=== PATIENT | male | born 1970 | race Caucasian/White ===

== ENCOUNTER 2017-05-26 09:32 | Emergency (ER) | payer OTHER ==
[~2017-05-26] VITALS: Ht 193 cm; Wt 125.2 kg
[2017-05-26 09:35] VITALS: BP 114/79; PULSE 76; RESP 19; TEMP 98.2; O2SAT 99
[2017-05-26] MEDS ORDERED: SODIUM CHLOR 0.9% 1000 ML INJ 1,000 ML IV SCH (09:47)
[2017-05-26 09:49] VITALS: BP 118/80; PULSE 78; RESP 18; O2SAT 100
[2017-05-26 09:55] VITALS: O2SAT 100
--- NOTE | 2017-05-26 09:55 | PD ---
HPI Chief Complaint: Abdominal Pain Time Seen by Provider: 09:40 Travel History International Travel<30 days: No Contact w/Intl Traveler<30days: No Traveled to known affect area: No History of Present Illness HPI 46 years old male complains of headache, neck pain, coughing, abdominal pain, nausea vomiting diarrhea and fever. Patient started having low back pain 2 days ago. Patient started running fever that night and nausea. Patient states that the fever was 102 orally. Patient started having low abdominal pain yesterday with nausea. Patient states the pain in cramping pain localized to lower abdomen. Patient denies any pain radiation. Patient started having increasing nausea and diarrhea this morning. Patient states that headache is mild aching headache diffuse over the head. Patient has history of recurrent neck and pain in the past. Patient states the cough is mild productive cough. Patient denies any chest pain or shortness of breath. Patient denies any dysuria or frequency. PFSH Past Medical History ?: Not Social History Tobacco Use: No Allergies-Medications (Allergen,Severity, Reaction): Coded Allergies: No Known Allergies (Unverified , 05/26/17) Reported Meds & Prescriptions Reported Meds & Active Scripts Active Ultram (Tramadol HCl) 50 Mg Tab 50 Mg PO Q6H PRN Bentyl (Dicyclomine HCl) 10 Mg Cap 10 Mg PO TID PRN Zofran Odt (Ondansetron Odt) 4 Mg Tab 4 Mg SL Q6HR PRN Review of Systems General / Constitutional: Positive: Fever Eyes: No: Visual changes HENT: Positive: Headaches, Neck Pain Cardiovascular: No: Chest Pain or Discomfort Respiratory: Positive: Cough, No: Shortness of Breath Gastrointestinal: Positive: Nausea, Vomiting, Diarrhea, Abdominal Pain Genitourinary: No: Dysuria Musculoskeletal: No: Pain Skin: No Rash Neurologic: No: Weakness Psychiatric: No: Depression Endocrine: No: Polydipsia Hematologic/Lymphatic: No: Easy Bruising Physical Exam Narrative GENERAL: Well-nourished, well-developed patient. SKIN: Focused skin assessment warm/dry. HEAD: Normocephalic. EYES: No scleral icterus. No injection or drainage. Throat: Nonerythematous. NECK: Supple, trachea midline. No JVD or lymphadenopathy. Mild tenderness paraspinal areas cervical spine. No midline tenderness. No meningismus. CARDIOVASCULAR: Regular rate and rhythm without murmurs, gallops, or rubs. RESPIRATORY: Breath sounds equal bilaterally. No accessory muscle use. GASTROINTESTINAL: Abdomen soft, nondistended. Patient has mild to moderate tenderness on palpation lower abdomen. No rebound tenderness. No mass. MUSCULOSKELETAL: No cyanosis, or edema. BACK: Mild to moderate tenderness on palpation left low lumbar area, without obvious deformity. No CVA tenderness. Neurologic exam normal. Data Data Last Documented VS Vital Signs Date Time Temp Pulse Resp B/P Pulse Ox O2 Delivery O2 Flow Rate FiO2 05/26/17 11:39 78 18 110/73 99 05/26/17 10:25 Room Air 05/26/17 09:35 98.2 Orders Complete Blood Count With Diff (05/26/17 09:47) Comprehensive Metabolic Panel (05/26/17 09:47) Lipase (05/26/17 09:47) Prothrombin Time / Inr (Pt) (05/26/17 09:47) Act Partial Throm Time (Ptt) (05/26/17 09:47) Urinalysis - C+S If Indicated (05/26/17 09:47) Ct Abd/Pel W Iv Contrast(Rout) (05/26/17 09:47) Iv Access Insert/Monitor (05/26/17 09:47) Ecg Monitoring (05/26/17 09:47) Oximetry (05/26/17 09:47) Ondansetron Inj (Zofran Inj) (05/26/17 10:00) Sodium Chlor 0.9% 1000 Ml Inj (Ns 1000 M (05/26/17 09:47) Morphine Inj (Morphine Inj) (05/26/17 10:15) Iohexol 350 Inj (Omnipaque 350 Inj) (05/26/17 10:51) Labs Laboratory Tests Test 05/26/17 05/26/17 10:01 10:19 White Blood Count 4.8 TH/MM3 Red Blood Count 5.08 MIL/MM3 Hemoglobin 14.8 GM/DL Hematocrit 44.8 % Mean Corpuscular Volume 88.2 FL Mean Corpuscular Hemoglobin 29.2 PG Mean Corpuscular Hemoglobin 33.1 % Concent Red Cell Distribution Width 12.4 % Platelet Count 186 TH/MM3 Mean Platelet Volume 9.0 FL Neutrophils (%) (Auto) 66.8 % Lymphocytes (%) (Auto) 21.4 % Monocytes (%) (Auto) 10.0 % Eosinophils (%) (Auto) 1.0 % Basophils (%) (Auto) 0.8 % Neutrophils # (Auto) 3.3 TH/MM3 Lymphocytes # (Auto) 1.0 TH/MM3 Monocytes # (Auto) 0.5 TH/MM3 Eosinophils # (Auto) 0.0 TH/MM3 Basophils # (Auto) 0.0 TH/MM3 CBC Comment DIFF FINAL Differential Comment Prothrombin Time 11.1 SEC Prothromb Time International 1.0 RATIO Ratio Activated Partial 24.6 SEC Thromboplast Time Sodium Level 141 MEQ/L Potassium Level 3.5 MEQ/L Chloride Level 106 MEQ/L Carbon Dioxide Level 26.2 MEQ/L Anion Gap 9 MEQ/L Blood Urea Nitrogen 9 MG/DL Creatinine 1.00 MG/DL Estimat Glomerular Filtration 80 ML/MIN Rate Random Glucose 130 MG/DL Calcium Level 8.5 MG/DL Total Bilirubin 0.9 MG/DL Aspartate Amino Transf 43 U/L (AST/SGOT) Alanine Aminotransferase 73 U/L (ALT/SGPT) Alkaline Phosphatase 70 U/L Total Protein 7.3 GM/DL Albumin 3.4 GM/DL Lipase 119 U/L Urine Collection Type CLEAN CATCH Urine Color STRAW Urine Turbidity CLEAR Urine pH 7.0 Urine Specific [place] 1.007 Urine Protein NEG mg/dL Urine Glucose (UA) NEG mg/dL Urine Ketones NEG mg/dL Urine Occult Blood TRACE Urine Nitrite NEG Urine Bilirubin NEG Urine Leukocyte Esterase NEG Urine RBC 0-3 /hpf Urine Squamous Epithelial 0-5 /hpf Cells Urine Amorphous Sediment FEW Microscopic Urinalysis Comment CULT NOT INDICATED Urine Collection Time 1019 MDM Medical Decision Making Medical Screen Exam Complete: Yes Emergency Medical Condition: Yes Interpretation(s) 10:42 AM. CBC within normal limit. CMP within normal limit. 11:01 AM. UA is negative. CT scan abdomen pelvis negative acute pathology. Differential Diagnosis Differential diagnosis including viral syndrome, bronchitis, pneumonia, gastroenteritis, colitis, UTI, pyelonephritis, nephrolithiasis, encephalitis Narrative Course 46 years old male with fever headache, neck pain, coughing, abdominal pain, nausea vomiting diarrhea and back pain. Diagnosis Primary Impression: Abdominal pain Qualified Code: R10.30 - Lower abdominal pain Additional Impressions: Gastroenteritis Viral syndrome Patient Instructions: General Instructions Additional Instructions: Encourage by mouth fluid. Tylenol for fever. Take medications as directed. Follow-up with personal physician. Return if persistent problem or worse. Med/Other Pt SpecificInfo: Prescription(s) given Scripts Tramadol (Ultram)50 Mg Tab50 Mg PO Q6H PRN (PAIN) #20 TAB Ref 0 Prov:Leon Grier MD 05/26/17 Dicyclomine (Bentyl)10 Mg Cap10 Mg PO TID PRN (PAIN SCALE 1 TO 10) #15 CAP Ref 0 Prov:Leon Grier MD 05/26/17 Ondansetron Odt (Zofran Odt)4 Mg Tab4 Mg SL Q6HR PRN (Nausea/Vomiting) #10 TAB Prov:Leon Grier MD 05/26/17 Disposition: 01 DISCHARGE HOME Condition: Stable Leon Grier MD May 26, 2017 09:55
[2017-05-26] MEDS ORDERED: ONDANSETRON HCL 4 MG/2 ML VIAL IVP ONE (10:00)
[2017-05-26] MEDS ORDERED: MORPHINE SULFATE 4 MG/ML INJ IV PUSH ONE (10:00)
[2017-05-26 10:14] LABS: AUTOMATED NEUTROPHIL # 3.3 TH/MM3 (1.8-7.7); BASOPHIL % 0.8 % (0.0-2.0); HEMATOCRIT 44.8 % (39.0-51.0); HEMO FLAGS DIFF FINAL; LYMPH % 21.4 % (9.0-44.0); MEAN CELL VOLUME 88.2 FL (80.0-100.0); MEAN CORPUSCULAR HEMOGLOBIN 29.2 PG (27.0-34.0); MEAN CORPUSCULAR HGB CONC 33.1 % (32.0-36.0); NEUT % 66.8 % (16.0-70.0); PLATELET COUNT 186 TH/MM3 (150-450); RED BLOOD COUNT 5.08 MIL/MM3 (4.50-5.90); RED CELL DISTRIBUTION WIDTH 12.4 % (11.6-17.2); WHITE BLOOD COUNT 4.8 TH/MM3 (4.0-11.0)
[2017-05-26] MEDS ORDERED: MORPHINE SULFATE 8 MG/ML INJ IV PUSH ONE ×2 (10:15)
[2017-05-26 10:21] LABS: CHLORIDE 106 MEQ/L (98-107); POTASSIUM 3.5 MEQ/L (3.5-5.1); SODIUM (NA) 141 MEQ/L (136-145)
[2017-05-26 10:25] VITALS: BP 131/86; PULSE 76; RESP 18; O2SAT 96
[2017-05-26 10:25] LABS: ANION GAP 9 MEQ/L (5-15); BICARBONATE 26.2 MEQ/L (21.0-32.0); BLOOD UREA NITROGEN 9 MG/DL (7-18)
[2017-05-26 10:28] LABS: ALT (GPT) 73 U/L (12-78); AST (GOT) 43 U/L (15-37); GLOMERULAR FILTRATION RATE 80 ML/MIN (>89)
[2017-05-26 10:30] LABS: TOTAL BILIRUBIN ADULT 0.9 MG/DL (0.2-1.0)
[2017-05-26 10:31] LABS: ALKALINE PHOSPHATASE 70 U/L (45-117)
[2017-05-26 10:32] LABS: APTT (PATIENT) 24.6 SEC (24.3-30.1); PROTHROMBIN TIME - PATIENT 11.1 SEC (9.8-11.6)
[2017-05-26 10:46] LABS: BLOOD, URINE TRACE (NEG); GLUCOSE,URINE NEG (NEG); KETONE, URINE NEG (NEG); METHOD OF COLLECTION CLEAN CATCH; NITRITE,URINE NEG (NEG); URINE COLOR STRAW (YELLW/STRAW)
[2017-05-26 10:51] LABS: CULTURE IF INDICATED CULT NOT INDICATED; RBC, URINE 0-3 /hpf (0-3); SQUAMOUS EPITHELIAL CELL URINE 0-5 /hpf (0-5)
[2017-05-26] MEDS ORDERED: IOHEXOL 350 MG/ML 10 ML VIAL (for RAD DIAG) IV ONE (10:51)
[2017-05-26 10:52] LABS: COMMENT (UR) CULT NOT INDICATED
--- NOTE | 2017-05-26 10:59 | RADRPT ---
EXAM DATE/TIME: 05/26/2017 10:30 [facility] COMPARISON: No previous studies available for comparison. INDICATIONS : Fever and mid abdominal pain that goes toward the left. IV CONTRAST: 100 cc Omnipaque 350 (iohexol) IV ORAL CONTRAST: No oral contrast ingested. RADIATION DOSE: 22.07 CTDIvol (mGy) MEDICAL HISTORY : SURGICAL HISTORY : Fusion, lumbar. ENCOUNTER: Initial ACUITY: 4 - 6 days PAIN SCALE: 5/10 LOCATION: Left lower quadrant TECHNIQUE: Volumetric scanning of the abdomen and pelvis was performed. Using automated exposure control and ad justment of the mA and/or kV according to patient size, radiation dose was kept as low as reasonably achievable to obtain optimal diagnostic quality images. DICOM format image data is available electro nically for review and comparison. FINDINGS: There is hepatic steatosis. Gallbladder, spleen, pancreas, adrenal glands, kidneys are unremarkable. Urinary bladder, prostate and seminal vesicles are unremarkable. No evidence of bowel obstruction. Sm all bowel, large bowel and appendix are normal. Stomach unremarkable. Lung bases are clear. Osseous s tructures are intact. CONCLUSION: Normal examination. Lg Fernandez MD on May 26, 2017 at 10:54 Board Certified Radiologist. This report was verified electronically.
[2017-05-26] MEDS ORDERED: DICY10 PO (11:10)
[2017-05-26] MEDS ORDERED: ZOFR4TAB3 SL (11:10)
[2017-05-26] MEDS ORDERED: ULTR50TA5 PO (11:10)
[2017-05-26 11:39] VITALS: BP 110/73
== END 2017-05-26 11:56 | disposition home or self-care (01) ==
LOC: PHED 09:32
DX: R10.30 Lower abdominal pain, unspecified (principal)
CPT/HCPCS: 74177; 80053; 81001; 83690; 85025; 85610; 85730; 96374; 96375; 99285; J2270; J2405; J7030; Q9967